=== PATIENT | male | born 1970 | race Two or more races ===

== ENCOUNTER 2025-02-24 13:41 | Emergency (ER) | payer OTHER ==
[~2025-02-24] VITALS: Ht 188 cm; Wt 127.0 kg
[2025-02-24] MEDS ORDERED: ALLOPURINOL100 MG PO (13:58)
[2025-02-24] MEDS ORDERED: COLCHICINE0.6 MG PO (13:59)
[2025-02-24 15:59] LABS: BASO % 0.4 % (0.1-1.2); EOS # 0.08 (0.04-0.54); EOS % 0.8 % (0.7-7.0); HEMATOCRIT 46.8 % (40.1-51.0); HEMOGLOBIN 16.2 g/dL (13.7-17.5); LYMPH # 1.59 (1.18-3.74); MEAN CORPUSCULAR HEMOGLOBIN 28.5 pg (25.6-32.2); MONO # 0.77 (0.24-0.82); MONO % 7.8 % (4.7-12.5); NEUT # 7.42 (1.56-6.13); NEUT % 74.8 % (34.0-71.1); PLATELET COUNT 198 K/uL (163-369); RED BLOOD COUNT 5.68 M/uL (4.63-6.08); RED CELL DISTRIBUTION WIDTH 13.2 % (11.6-14.4)
[2025-02-24 16:46] LABS: ALBUMIN 4.2 gm/dL (3.4-5.0); BILIRUBIN TOTAL 1.22 mg/dL (0.3-1.2); CALCIUM 9.5 mg/dL (8.5-10.1); CREATININE SERUM 1.21 mg/dL (0.70-1.30); GFR 62.73; GLOBULINA 3.7 G/DL (2.4-3.5); POTASSIUM 4.25 mEq/L (3.5-5.1); TOTAL PROTEIN 7.9 gm/dL (6.4-8.2)
[2025-02-24] MEDS ORDERED: DEXAMETHASONE SODIUM PHOSPHATE 4 MG/ML VIAL IM STA (17:23)
[2025-02-24] MEDS ORDERED: KETOROLAC TROMETHAMINE 30 MG VIAL IM STA (17:23)
[2025-02-24] MEDS ORDERED: DEXAMETHASONE SODIUM PHOSPHATE 4 MG/ML VIAL ONE (17:24)
[2025-02-24] MEDS ORDERED: KETOROLAC TROMETHAMINE 30 MG VIAL ONE (17:24)
== END 2025-02-24 18:39 | disposition home or self-care (01) ==
LOC: ER 13:56
PROVIDERS: Preventive Medicine Public Health & General Preventive Medicine
DX: M25.562 Pain in left knee (principal); M10.9 Gout, unspecified

== ENCOUNTER → 2025-09-21 | Emergency (ER) | payer OTHER ==
[~2025-09-21] VITALS: Ht 190.5 cm; Wt 116.6 kg
[~2025-09-21] MED LIST: ALLOPURINOL100 MG PO; COLCHICINE0.6 MG PO; DEXAMETHASONE SODIUM PHOSPHATE 4 MG/ML VIAL IM STA; DEXAMETHASONE SODIUM PHOSPHATE 4 MG/ML VIAL ONE; KETOROLAC TROMETHAMINE 30 MG VIAL IM STA; KETOROLAC TROMETHAMINE 30 MG VIAL ONE; ORPHENADRINE CITRATE 30 MG/ML AMPUL IM STA; ORPHENADRINE CITRATE 30 MG/ML AMPUL ONE
== END | disposition home or self-care (01) ==
LOC: ER 08:28
DX: M54.50 Low back pain, unspecified (principal)